=== PATIENT | female | born 1940 | race Caucasian/White ===

== ENCOUNTER 2017-04-16 22:05 | Inpatient (IN) | payer MEDICARE, OTHER ==
[~2017-04-16] VITALS: Ht 142.2 cm; Wt 51.4 kg
[~2017-04-16 22:05] MED LIST: DIVA125T3 PO; DIVA250T33 PO; LEVO75TA PO; LOSA50TA3 PO; OLAN5TAB29 PO; POLY17PO10 PO; RANI150C4 PO
[2017-04-16] MEDS ORDERED: DIVA500T28 (22:20)
[2017-04-16] MEDS ORDERED: OLAN5TAB5 PO (22:30)
[2017-04-17] MEDS ORDERED: OLAN-1 PO (01:10)
[2017-04-17] MEDS ORDERED: POLY17PO10 PO (01:16)
[2017-04-17] MEDS ORDERED: DIVA500T7 PO (01:16)
[2017-04-17] MEDS ORDERED: OLANZapine 5mg rapidly disint. tablet PO ONE (01:50)
[2017-04-17 03:44] VITALS: BP 177/86
[2017-04-17] MEDS: levoTHYROXINE 75mcg tablet PO SCH (07:40)
[2017-04-17 08:00] VITALS: BP 118/55
[2017-04-17] MEDS: divalproex sodium 250mg tablet PO SCH (08:11)
[2017-04-17] MEDS: losartan 50mg tablet PO SCH (08:11)
[2017-04-17 19:40] VITALS: BP 137/73
[2017-04-17] MEDS ORDERED: OLANZapine 5mg rapidly disint. tablet PO SCH ×2 (21:00)
[2017-04-17] MEDS: polyethylene glycol 3350 17gm powd pack PO SCH (21:00)
[2017-04-17] MEDS: temazepam 15mg capsule PO PRN (22:03)
[2017-04-17] MEDS: divalproex sodium 500mg tablet.DR PO SCH (22:05)
[2017-04-18] MEDS: levoTHYROXINE 75mcg tablet PO SCH (07:23)
[2017-04-18 08:00] VITALS: BP 132/83
[2017-04-18] MEDS: losartan 50mg tablet PO SCH (08:21)
[2017-04-18] MEDS: divalproex sodium 250mg tablet PO SCH (08:21)
[2017-04-18 09:03] VITALS: BP 132/83
[2017-04-18 19:11] VITALS: BP 121/77
[2017-04-18] MEDS: divalproex sodium 500mg tablet.DR PO SCH (20:37)
[2017-04-18] MEDS: OLANZapine 5mg rapidly disint. tablet PO SCH (20:37)
[2017-04-18] MEDS: polyethylene glycol 3350 17gm powd pack PO SCH (20:38)
[2017-04-19] MEDS: levoTHYROXINE 75mcg tablet PO SCH (07:43)
[2017-04-19 07:54] VITALS: BP 139/63
[2017-04-19] MEDS ORDERED: divalproex sodium 250mg tablet PO SCH (08:00)
[2017-04-19] MEDS ORDERED: divalproex sodium 500mg tablet.DR PO SCH (08:15)
[2017-04-19] MEDS: losartan 50mg tablet PO SCH (08:40)
[2017-04-19] MEDS: divalproex sodium 500mg tablet.DR PO SCH ×2 (08:40→20:27)
[2017-04-19 19:33] VITALS: BP 166/78
[2017-04-19] MEDS: polyethylene glycol 3350 17gm powd pack PO SCH (20:27)
[2017-04-19] MEDS: OLANZapine 5mg rapidly disint. tablet PO SCH (20:28)
[2017-04-19 20:30] VITALS: BP 140/80
[2017-04-20] MEDS: acetaminophen 325mg tablet PO PRN (03:28)
[2017-04-20 07:47] VITALS: BP 132/55
[2017-04-20] MEDS: divalproex sodium 500mg tablet.DR PO SCH ×2 (08:09→21:17)
[2017-04-20] MEDS: losartan 50mg tablet PO SCH (08:10)
[2017-04-20] MEDS: levoTHYROXINE 75mcg tablet PO SCH (08:10)
[2017-04-20 20:00] VITALS: BP 140/82
[2017-04-20] MEDS: polyethylene glycol 3350 17gm powd pack PO SCH (21:17)
[2017-04-20] MEDS: OLANZapine 5mg rapidly disint. tablet PO SCH (21:17)
[2017-04-20] MEDS: temazepam 15mg capsule PO PRN (22:19)
[2017-04-21 07:00] VITALS: BP 136/78
[2017-04-21] MEDS: levoTHYROXINE 75mcg tablet PO SCH (07:12)
[2017-04-21] MEDS: losartan 50mg tablet PO SCH (08:01)
[2017-04-21] MEDS: divalproex sodium 500mg tablet.DR PO SCH ×2 (08:01→21:06)
[2017-04-21 20:00] VITALS: BP 135/46
[2017-04-21] MEDS: polyethylene glycol 3350 17gm powd pack PO SCH (21:05)
[2017-04-21] MEDS: OLANZapine 5mg rapidly disint. tablet PO SCH (21:06)
[2017-04-21] MEDS: temazepam 15mg capsule PO PRN (21:06)
[2017-04-22 07:03] VITALS: BP 144/70
[2017-04-22] MEDS: losartan 50mg tablet PO SCH (08:32)
[2017-04-22] MEDS: levoTHYROXINE 75mcg tablet PO SCH (08:32)
[2017-04-22] MEDS: divalproex sodium 500mg tablet.DR PO SCH ×2 (08:32→20:49)
[2017-04-22 19:38] VITALS: BP 154/80
[2017-04-22] MEDS: polyethylene glycol 3350 17gm powd pack PO SCH (20:49)
[2017-04-22] MEDS: OLANZapine 5mg rapidly disint. tablet PO SCH (20:49)
[2017-04-23] MEDS: temazepam 15mg capsule PO PRN (00:29)
[2017-04-23 06:00] VITALS: BP 148/87
[2017-04-23 08:00] VITALS: BP 148/73
[2017-04-23] MEDS: levoTHYROXINE 75mcg tablet PO SCH (08:27)
[2017-04-23] MEDS: losartan 50mg tablet PO SCH (08:27)
[2017-04-23] MEDS: divalproex sodium 500mg tablet.DR PO SCH ×2 (08:27→20:59)
[2017-04-23 19:07] VITALS: BP 134/68
[2017-04-23] MEDS: polyethylene glycol 3350 17gm powd pack PO SCH (20:58)
[2017-04-23] MEDS ORDERED: QUEtiapine 25mg tablet PO SCH (21:00)
[2017-04-24] MEDS: acetaminophen 325mg tablet PO PRN ×2 (04:18→09:03)
[2017-04-24] MEDS: levoTHYROXINE 75mcg tablet PO SCH (06:50)
[2017-04-24 07:43] LABS: BASOPHILS % (AUTO) 0.7 % (0-1); EOSINOPHILS # (AUTO) 0.1 X10'3 (0-0.9); EOSINOPHILS % (AUTO) 2.3 % (0-6); HEMATOCRIT 35.2 % (35.0-45.0); HEMOGLOBIN 12.1 g/dl (12.0-16.0); LYMPHOCYTES # (AUTO) 1.2 X10'3 (1.1-4.8); MEAN CORPUSCULAR HEMOGLOBIN 31.6 PG (27.0-31.0); MEAN CORPUSCULAR HGB CONC 34.5 % (33.0-36.5); MEAN CORPUSCULAR VOLUME 91.4 FL (78-98); MONOCYTES # (AUTO) 0.5 X10'3 (0-0.9); MONOCYTES % (AUTO) 12.4 % (2-12); NEUTROPHILS % (AUTO) 52.6 % (42-75); PLATELET COUNT 225 X10'3 (140-440); RED BLOOD COUNT 3.85 X10'6 (4.20-5.60); RED CELL DISTRIBUTION WIDTH 12.6 % (11.5-14.5); WHITE BLOOD COUNT 3.9 X10'3 (4.5-11.0)
[2017-04-24 08:06] LABS: ALANINE AMINOTRANSFERASE 22 U/L (12-78); ALBUMIN 3.6 G/DL (3.4-5.0); ALBUMIN/GLOBULIN RATIO 1.1 (1.1-1.5); ALKALINE PHOSPHATASE 56 IU/L (46-116); ANION GAP 5 (8-16); ASPARTATE AMINO TRANSFERASE 11 U/L (10-37); BILIRUBIN,TOTAL 0.4 MG/DL (0.1-1.0); BLOOD UREA NITROGEN 24 MG/DL (7-18); CALCIUM 9.2 MG/DL (8.5-10.1); CHLORIDE 99 MMOL/L (99-107); GLUCOSE 104 MG/DL (70-104); POTASSIUM 4.8 MMOL/L (3.5-5.1); SODIUM 134 MMOL/L (135-145); TOTAL CARBON DIOXIDE 29.6 MMOL/L (24-32); TOTAL PROTEIN 6.8 G/DL (6.4-8.2); eGFR 44 ML/MIN
[2017-04-24] MEDS: divalproex sodium 500mg tablet.DR PO SCH ×2 (08:22→20:06)
[2017-04-24] MEDS: losartan 50mg tablet PO SCH (08:22)
[2017-04-24 08:25] LABS: VALPROATE 99 UG/ML (50-100)
[2017-04-24] MEDS ORDERED: QUEtiapine 25mg tablet PO STA (08:28)
[2017-04-24 09:00] VITALS: BP 149/91
[2017-04-24] MEDS ORDERED: LORazepam 0.5 MG tablet PO ONE (12:00)
[2017-04-24] MEDS ORDERED: QUEtiapine 25mg tablet PO ONE (12:00)
[2017-04-24 19:36] VITALS: BP 109/56
[2017-04-24] MEDS: QUEtiapine 25mg tablet PO SCH (20:05)
[2017-04-24] MEDS: polyethylene glycol 3350 17gm powd pack PO SCH ×2 (20:06→20:12)
[2017-04-25 08:00] VITALS: BP 129/53
[2017-04-25] MEDS: levoTHYROXINE 75mcg tablet PO SCH (08:16)
[2017-04-25] MEDS: losartan 50mg tablet PO SCH (08:16)
[2017-04-25] MEDS: divalproex sodium 500mg tablet.DR PO SCH ×2 (08:16→20:12)
[2017-04-25] MEDS: QUEtiapine 25mg tablet PO SCH ×2 (08:17→20:13)
[2017-04-25 19:33] VITALS: BP 154/75
[2017-04-25] MEDS: polyethylene glycol 3350 17gm powd pack PO SCH (20:19)
[2017-04-26 07:16] VITALS: BP 133/61
[2017-04-26] MEDS: levoTHYROXINE 75mcg tablet PO SCH (07:37)
[2017-04-26] MEDS: QUEtiapine 25mg tablet PO SCH ×2 (07:37→20:09)
[2017-04-26] MEDS: losartan 50mg tablet PO SCH (07:38)
[2017-04-26] MEDS: divalproex sodium 500mg tablet.DR PO SCH ×2 (07:38→20:09)
[2017-04-26 19:55] VITALS: BP 157/68
[2017-04-26] MEDS: acetaminophen 325mg tablet PO PRN (20:08)
[2017-04-26] MEDS: polyethylene glycol 3350 17gm powd pack PO SCH (20:08)
[2017-04-27] MEDS ORDERED: acetaminophen 325mg tablet PO PRN (01:20)
[2017-04-27] MEDS: LORazepam 0.5 MG tablet PO PRN ×2 (02:39→20:20)
[2017-04-27 07:09] VITALS: BP 133/65
[2017-04-27] MEDS: levoTHYROXINE 75mcg tablet PO SCH (07:18)
[2017-04-27] MEDS: divalproex sodium 500mg tablet.DR PO SCH ×2 (07:18→20:20)
[2017-04-27] MEDS: QUEtiapine 25mg tablet PO SCH ×2 (07:19→20:20)
[2017-04-27] MEDS: losartan 50mg tablet PO SCH ×2 (07:57→08:01)
[2017-04-27] MEDS: acetaminophen 325mg tablet PO PRN (14:22)
[2017-04-27 19:25] VITALS: BP 133/72
[2017-04-27] MEDS: polyethylene glycol 3350 17gm powd pack PO SCH (21:00)
[2017-04-28 07:15] VITALS: BP 137/65
[2017-04-28] MEDS: levoTHYROXINE 75mcg tablet PO SCH (07:27)
[2017-04-28] MEDS: divalproex sodium 500mg tablet.DR PO SCH ×2 (08:06→21:02)
[2017-04-28] MEDS: losartan 50mg tablet PO SCH (08:06)
[2017-04-28] MEDS: QUEtiapine 25mg tablet PO SCH (08:07)
[2017-04-28] MEDS: acetaminophen 325mg tablet PO PRN (16:56)
[2017-04-28 17:37] LABS: CLARITY,URINE Clear (Clear); GLUCOSE, URINE Negative (Neg); KETONES,URINE Negative (Neg); LEUKOCYTE ESTERASE ,URINE Negative (Neg); NITRITES, URINE Negative (Neg); OCCULT BLOOD,URINE Trace (Neg); PROTEIN,URINE Negative (Neg); UROBILINOGEN,URINE 0.2 E.U/dL (0.2-1.0)
[2017-04-28 17:38] LABS: COLOR,URINE STRAW (Yellow); UA COLLECTION TYPE STRAIGHT CATH
[2017-04-28 17:49] LABS: BACTERIA,URINE NONE SEEN /HPF (Neg); MUCUS STRANDS NONE SEEN /LPF (Neg); RBC,URINE 0-2 /HPF (0-2); SQUAMOUS EPITHELIAL CELL,UR NONE SEEN /LPF (FEW); WBC,URINE NONE SEEN /HPF (0-4)
[2017-04-28] MEDS: phenazopyridine 100mg tablet PO SCH (17:51)
[2017-04-28 19:00] VITALS: BP 143/55
[2017-04-28] MEDS ORDERED: QUEtiapine 25mg tablet PO SCH (21:00)
[2017-04-28] MEDS: polyethylene glycol 3350 17gm powd pack PO SCH (21:00)
[2017-04-29] MEDS: acetaminophen 325mg tablet PO PRN ×2 (07:25→18:48)
[2017-04-29] MEDS: levoTHYROXINE 75mcg tablet PO SCH (07:26)
[2017-04-29 08:00] VITALS: BP 152/72
[2017-04-29] MEDS: phenazopyridine 100mg tablet PO SCH ×3 (08:00→18:00)
[2017-04-29] MEDS: losartan 50mg tablet PO SCH (08:25)
[2017-04-29] MEDS: divalproex sodium 500mg tablet.DR PO SCH ×2 (08:25→20:57)
[2017-04-29] MEDS: QUEtiapine 25mg tablet PO SCH (08:25)
[2017-04-29] MEDS ORDERED: quetiapine 100mg tablet PO ONE (08:55)
[2017-04-29] MEDS: LORazepam 0.5 MG tablet PO PRN (11:02)
[2017-04-29] MEDS: LORazepam 0.5 MG tablet PO SCH ×3 (11:30→20:57)
[2017-04-29] MEDS: OLANZapine 2.5MG tablet PO SCH (12:58)
[2017-04-29 19:17] VITALS: BP 164/62
[2017-04-29] MEDS: olanzapine 10mg tablet PO SCH (20:57)
[2017-04-29] MEDS: polyethylene glycol 3350 17gm powd pack PO SCH (21:00)
[2017-04-30] MEDS: OLANZapine 2.5MG tablet PO SCH ×2 (06:53→13:28)
[2017-04-30] MEDS: levoTHYROXINE 75mcg tablet PO SCH (06:53)
[2017-04-30 08:00] VITALS: BP 157/81
[2017-04-30] MEDS: divalproex sodium 500mg tablet.DR PO SCH ×2 (08:17→19:23)
[2017-04-30] MEDS: losartan 50mg tablet PO SCH (08:17)
[2017-04-30] MEDS: LORazepam 0.5 MG tablet PO SCH ×2 (08:17→13:28)
[2017-04-30] MEDS: phenazopyridine 100mg tablet PO SCH ×3 (08:17→19:25)
[2017-04-30] MEDS: acetaminophen 325mg tablet PO PRN (14:56)
[2017-04-30] MEDS ORDERED: LORazepam 0.5 MG tablet PO PRN (17:55)
[2017-04-30] MEDS: olanzapine 10mg tablet PO SCH (19:25)
[2017-04-30] MEDS: polyethylene glycol 3350 17gm powd pack PO SCH (19:30)
[2017-04-30 19:43] VITALS: BP 132/51
[2017-05-01] MEDS: levoTHYROXINE 75mcg tablet PO SCH (07:31)
[2017-05-01 08:00] VITALS: BP 144/73
[2017-05-01] MEDS: phenazopyridine 100mg tablet PO SCH ×2 (08:09→12:57)
[2017-05-01] MEDS: losartan 50mg tablet PO SCH (08:09)
[2017-05-01] MEDS: divalproex sodium 500mg tablet.DR PO SCH ×2 (08:09→20:42)
[2017-05-01] MEDS: acetaminophen 325mg tablet PO PRN (12:56)
[2017-05-01 19:22] LABS: BASOPHILS % (AUTO) 0.3 % (0-1); EOSINOPHILS # (AUTO) 0.1 X10'3 (0-0.9); EOSINOPHILS % (AUTO) 1.3 % (0-6); HEMATOCRIT 35.5 % (35.0-45.0); HEMOGLOBIN 12.3 g/dl (12.0-16.0); LYMPHOCYTES # (AUTO) 1.7 X10'3 (1.1-4.8); MEAN CORPUSCULAR HGB CONC 34.7 % (33.0-36.5); MEAN CORPUSCULAR VOLUME 92.2 FL (78-98); MEAN PLATELET VOLUME 7.3 FL (7.4-10.4); MONOCYTES # (AUTO) 0.6 X10'3 (0-0.9); MONOCYTES % (AUTO) 10.4 % (2-12); NEUTROPHILS # (AUTO) 3.1 X10'3 (1.8-7.7); PLATELET COUNT 232 X10'3 (140-440); RED BLOOD COUNT 3.85 X10'6 (4.20-5.60); WHITE BLOOD COUNT 5.5 X10'3 (4.5-11.0)
[2017-05-01 19:31] LABS: BLOOD UREA NITROGEN 27 MG/DL (7-18); CREATININE 1.31 MG/DL (0.40-0.90); eGFR 39 ML/MIN
[2017-05-01 20:13] VITALS: BP 151/60
[2017-05-01] MEDS: olanzapine 10mg tablet PO SCH (20:42)
[2017-05-01] MEDS: polyethylene glycol 3350 17gm powd pack PO SCH (20:48)
[2017-05-02] MEDS: levoTHYROXINE 75mcg tablet PO SCH (07:28)
[2017-05-02 07:42] VITALS: BP 155/83
[2017-05-02] MEDS: losartan 50mg tablet PO SCH (08:18)
[2017-05-02] MEDS: divalproex sodium 500mg tablet.DR PO SCH (08:18)
[2017-05-02] MEDS: acetaminophen 325mg tablet PO PRN ×2 (10:57→20:19)
[2017-05-02] MEDS ORDERED: OLANZapine 5mg rapidly disint. tablet PO PRN (17:00)
[2017-05-02 19:55] VITALS: BP 147/93
[2017-05-02] MEDS: olanzapine 10mg tablet PO SCH (20:19)
[2017-05-02] MEDS: polyethylene glycol 3350 17gm powd pack PO SCH (21:00)
[2017-05-02] MEDS ORDERED: divalproex sodium 500mg tablet.DR PO SCH (21:00)
[2017-05-03] MEDS: acetaminophen 325mg tablet PO PRN ×2 (05:14→11:54)
[2017-05-03 07:08] VITALS: BP 136/73
[2017-05-03] MEDS: levoTHYROXINE 75mcg tablet PO SCH (07:38)
[2017-05-03] MEDS: divalproex sod 125mg tablet.DR PO SCH (09:03)
[2017-05-03] MEDS: losartan 50mg tablet PO SCH (09:03)
[2017-05-03 09:36] LABS: BASOPHILS % (AUTO) 0.9 % (0-1); EOSINOPHILS % (AUTO) 1.2 % (0-6); HEMATOCRIT 34.6 % (35.0-45.0); HEMOGLOBIN 12.4 g/dl (12.0-16.0); LYMPHOCYTES # (AUTO) 0.9 X10'3 (1.1-4.8); LYMPHOCYTES % (AUTO) 22.9 % (21-51); MEAN CORPUSCULAR HEMOGLOBIN 32.4 PG (27.0-31.0); MEAN CORPUSCULAR HGB CONC 35.8 % (33.0-36.5); MEAN CORPUSCULAR VOLUME 90.4 FL (78-98); MEAN PLATELET VOLUME 6.3 FL (7.4-10.4); MONOCYTES # (AUTO) 0.5 X10'3 (0-0.9); MONOCYTES % (AUTO) 13.2 % (2-12); NEUTROPHILS # (AUTO) 2.4 X10'3 (1.8-7.7); NEUTROPHILS % (AUTO) 61.8 % (42-75); PLATELET COUNT 248 X10'3 (140-440); RED BLOOD COUNT 3.82 X10'6 (4.20-5.60); RED CELL DISTRIBUTION WIDTH 12.2 % (11.5-14.5); WHITE BLOOD COUNT 3.9 X10'3 (4.5-11.0)
[2017-05-03 09:50] LABS: ALANINE AMINOTRANSFERASE 16 U/L (12-78); ALBUMIN 3.9 G/DL (3.4-5.0); ALBUMIN/GLOBULIN RATIO 1.1 (1.1-1.5); ALKALINE PHOSPHATASE 67 IU/L (46-116); ANION GAP 9 (8-16); ASPARTATE AMINO TRANSFERASE 14 U/L (10-37); BILIRUBIN,TOTAL 0.4 MG/DL (0.1-1.0); BLOOD UREA NITROGEN 24 MG/DL (7-18); BUN/CREATININE RATIO 25.5 (6.6-38.0); CALCIUM 9.4 MG/DL (8.5-10.1); CHLORIDE 96 MMOL/L (99-107); CREATININE 0.94 MG/DL (0.40-0.90); GLUCOSE 102 MG/DL (70-104); POTASSIUM 4.4 MMOL/L (3.5-5.1); SODIUM 133 MMOL/L (135-145); TOTAL CARBON DIOXIDE 27.7 MMOL/L (24-32); TOTAL PROTEIN 7.5 G/DL (6.4-8.2); eGFR 58 ML/MIN
[2017-05-03 10:11] LABS: CLARITY,URINE Clear (Clear); COLOR,URINE Yellow (Yellow); GLUCOSE, URINE Negative (Neg); KETONES,URINE Negative (Neg); LEUKOCYTE ESTERASE ,URINE Negative (Neg); NITRITES, URINE Negative (Neg); OCCULT BLOOD,URINE Negative (Neg); PH,URINE 7.5 (4.8-8.0); PROTEIN,URINE Negative (Neg); UROBILINOGEN,URINE 0.2 E.U/dL (0.2-1.0)
[2017-05-03 10:15] LABS: UA COLLECTION TYPE STRAIGHT CATH
[2017-05-03] MEDS ORDERED: OLANZapine 2.5MG tablet PO ONE ×2 (12:45→20:50)
[2017-05-03] MEDS: traZODone 50mg tablet PO SCH (20:20)
[2017-05-03] MEDS: olanzapine 10mg tablet PO SCH (21:00)
[2017-05-03] MEDS: polyethylene glycol 3350 17gm powd pack PO SCH (21:00)
[2017-05-03] MEDS: divalproex sodium 250mg tablet PO SCH (21:00)
[2017-05-03] MEDS ORDERED: OLANZapine 5mg rapidly disint. tablet PO ONE (21:30)
[2017-05-04 08:00] VITALS: BP 129/76
[2017-05-04] MEDS: OLANZapine 2.5MG tablet PO SCH ×2 (08:43→13:06)
[2017-05-04] MEDS: levoTHYROXINE 75mcg tablet PO SCH (08:43)
[2017-05-04] MEDS: divalproex sod 125mg tablet.DR PO SCH (08:43)
[2017-05-04] MEDS: losartan 50mg tablet PO SCH (08:43)
[2017-05-04 19:00] VITALS: BP 167/77
[2017-05-04] MEDS ORDERED: OLANZapine 2.5MG tablet PO ONE (19:40)
[2017-05-04] MEDS ORDERED: OLANZapine **IM** 10 mg inj. IM ONE (19:45)
[2017-05-04] MEDS: acetaminophen 325mg tablet PO PRN (20:08)
[2017-05-04] MEDS: traZODone 50mg tablet PO SCH (20:10)
[2017-05-04] MEDS: polyethylene glycol 3350 17gm powd pack PO SCH (20:20)
[2017-05-04] MEDS: divalproex sodium 250mg tablet PO SCH (21:00)
[2017-05-04] MEDS ORDERED: OLANZapine 2.5MG tablet PO SCH (21:00)
[2017-05-04] MEDS ORDERED: ketorolac tromethamine 15mg/ml inj. IM ONE (21:40)
[2017-05-04] MEDS ORDERED: ketorolac trometh. 30mg/ml inj. IM ONE (21:55)
[2017-05-05] MEDS ORDERED: benztropine 1 mg/ml 2ml ampule IM ONE ×2 (00:25→00:35)
[2017-05-05] MEDS ORDERED: haloperidol lactate 5mg/ml inj IM ONE ×2 (00:25→00:35)
[2017-05-05] MEDS ORDERED: LORazepam 2 mg/ml vial IM ONE ×2 (00:25→00:35)
[2017-05-05] MEDS ORDERED: magnesium hydroxide 30ml (MOM) UD suspension PO ONE (07:10)
[2017-05-05 07:40] VITALS: BP 114/62
[2017-05-05] MEDS: levoTHYROXINE 75mcg tablet PO SCH (07:43)
[2017-05-05] MEDS: losartan 50mg tablet PO SCH (07:55)
[2017-05-05] MEDS ORDERED: divalproex sod 125mg tablet.DR PO SCH (08:00)
[2017-05-05] MEDS ORDERED: docusate sod 250mg capsule PO SCH (08:00)
[2017-05-05] MEDS ORDERED: clonazePAM 0.5mg tablet PO SCH (08:00)
[2017-05-05 12:14] VITALS: BP 116/63
[2017-05-05 12:28] LABS: ALANINE AMINOTRANSFERASE 24 U/L (12-78); ALBUMIN 3.8 G/DL (3.4-5.0); ALBUMIN/GLOBULIN RATIO 1.2 (1.1-1.5); ALKALINE PHOSPHATASE 66 IU/L (46-116); ANION GAP 9 (8-16); ASPARTATE AMINO TRANSFERASE 24 U/L (10-37); BILIRUBIN,TOTAL 0.4 MG/DL (0.1-1.0); BLOOD UREA NITROGEN 36 MG/DL (7-18); BUN/CREATININE RATIO 20.6 (6.6-38.0); CALCIUM 9.5 MG/DL (8.5-10.1); CHLORIDE 92 MMOL/L (99-107); CREATININE 1.75 MG/DL (0.40-0.90); GLUCOSE 90 MG/DL (70-104); POTASSIUM 4.9 MMOL/L (3.5-5.1); SODIUM 129 MMOL/L (135-145); TOTAL CARBON DIOXIDE 28.4 MMOL/L (24-32); eGFR 28 ML/MIN
== END 2017-05-05 12:30 | disposition short-term general hospital (02) | DRG 885 ==
LOC: ADULT MH 22:05
PROVIDERS: ADMIT Psychiatry & Neurology Psychiatry; ATTEND Psychiatry & Neurology Psychiatry
DX: F25.0 Schizoaffective disorder, bipolar type (principal); I62.01 Nontraumatic acute subdural hemorrhage; F29 Unspecified psychosis not due to a substance or known physiological condition; F39 Unspecified mood [affective] disorder; W18.39XA Other fall on same level, initial encounter; I44.7 Left bundle-branch block, unspecified; E03.9 Hypothyroidism, unspecified; I12.9 Hypertensive chronic kidney disease with stage 1 through stage 4 chronic kidney disease, or unspecified chronic kidney disease; K21.9 Gastro-esophageal reflux disease without esophagitis; N18.9 Chronic kidney disease, unspecified; R01.1 Cardiac murmur, unspecified; F32.9 Major depressive disorder, single episode, unspecified; K40.90 Unilateral inguinal hernia, without obstruction or gangrene, not specified as recurrent; Z53.20 Procedure and treatment not carried out because of patient's decision for unspecified reasons; Z96.652 Presence of left artificial knee joint; Z90.710 Acquired absence of both cervix and uterus; Z88.2 Allergy status to sulfonamides; Z88.6 Allergy status to analgesic agent; Z88.8 Allergy status to other drugs, medicaments and biological substances; Z79.899 Other long term (current) drug therapy; Z87.891 Personal history of nicotine dependence; Y93.89 Activity, other specified; Y92.091 Bathroom in other non-institutional residence as the place of occurrence of the external cause; Y99.8 Other external cause status
CPT/HCPCS: 36415; 70450; 74176; 80053; 80164; 81001; 81003; 82565; 83036; 83605; 83690; 84439; 84443; 84480; 84520; 85025; 87070; J0515; J1630; J1885; J2060; J3490

== ENCOUNTER 2018-10-22 06:17 | Day surgery (SDC) | payer MEDICARE, OTHER ==
[2018-10-17 12:42] LABS: BASOPHILS % (AUTO) 0.6 % (0-1); EOSINOPHILS % (AUTO) 0.7 % (0-6); LYMPHOCYTES # (AUTO) 1.3 X10'3 (1.1-4.8); LYMPHOCYTES % (AUTO) 28.5 % (21-51); MEAN CORPUSCULAR HEMOGLOBIN 31.7 PG (27.0-31.0); MEAN CORPUSCULAR VOLUME 93.4 FL (78-98); MEAN PLATELET VOLUME 6.8 FL (7.4-10.4); MONOCYTES # (AUTO) 0.6 X10'3 (0-0.9); MONOCYTES % (AUTO) 12.6 % (2-12); NEUTROPHILS # (AUTO) 2.7 X10'3 (1.8-7.7); NEUTROPHILS % (AUTO) 57.6 % (42-75); PRE OP HEMATOCRIT 37.1 % (35.0-45.0); PRE OP HEMOGLOBIN 12.6 g/dL (12.0-16.0); PRE OP PLATELET COUNT 221 X10'3 (140-440); RED BLOOD COUNT 3.98 X10'6 (4.20-5.60); RED CELL DISTRIBUTION WIDTH 12.7 % (11.5-14.5)
[2018-10-17 12:44] LABS: CLARITY,URINE CLOUDY (Clear); COLOR,URINE YELLOW (Yellow); GLUCOSE, URINE NEGATIVE (Neg); KETONES,URINE NEGATIVE (Neg); LEUKOCYTE ESTERASE ,URINE MODERATE (Neg); NITRITES, URINE NEGATIVE (Neg); OCCULT BLOOD,URINE TRACE-INTACT (Neg); PH,URINE 6.5 (4.8-8.0); PROTEIN,URINE NEGATIVE (Neg); UROBILINOGEN,URINE 0.2 E.U/dL (0.2-1.0)
[2018-10-17 12:45] LABS: UA COLLECTION TYPE CLN CATCH MIDSTREAM
[2018-10-17 13:06] LABS: MUCUS STRANDS FEW /LPF (Neg); RENAL CELLS, URINE FEW /HPF; SQUAMOUS EPITHELIAL CELL,UR FEW /LPF (FEW); TRANSITIONAL EPI CELLS,URINE FEW /HPF
[2018-10-17 13:07] LABS: ALBUMIN 4.1 G/DL (3.4-5.0); ALBUMIN/GLOBULIN RATIO 1.1 (1.1-1.5); ALKALINE PHOSPHATASE 56 IU/L (46-116); BLOOD UREA NITROGEN 23 MG/DL (7-18); BUN/CREATININE RATIO 21.1 (6.6-38.0); CALCIUM 9.4 MG/DL (8.5-10.1); CHLORIDE 105 MMOL/L (99-107); CREATININE 1.09 MG/DL (0.40-0.90); PRE OP ALT 21 U/L (30-65); PRE OP ANION GAP 7 (8-16); PRE OP AST 16 U/L (10-37); PRE OP BILIRUB, TOTAL 0.3 MG/DL (0.0-1.0); PRE OP GLUCOSE 71 MG/DL (70-104); PRE OP POTASSIUM 4.3 MMOL/L (3.4-5.1); PRE OP SODIUM 139 MMOL/L (135-145); TOTAL CARBON DIOXIDE 27.1 MMOL/L (24-32); TOTAL PROTEIN 7.8 G/DL (6.4-8.2); eGFR 49 ML/MIN
[2018-10-17 13:07] LABS: BACTERIA,URINE 1+ /HPF (Neg); RBC,URINE 0-2 /HPF (0-2); WBC,URINE 0-4 /HPF (0-4)
[2018-10-22] VITALS (14 sets, daily range): BP systolic 132–158; BP diastolic 50–88
[~2018-10-22] VITALS: Ht 147.3 cm; Wt 52.0 kg
[~2018-10-22 06:17] MED LIST changes: +ALEN70TA13 PO; +BENZ0.5T4 PO; -DIVA125T3 PO; +DIVA500T39 PO; +DOCU-148 PO; +HALO5TAB PO; +LAMO25TA5 PO; -LEVO75TA PO; +LEVO88TA7 PO; -LOSA50TA3 PO; -OLAN5TAB29 PO; +OLAN5TAB5 PO; +OSC500T PO; -POLY17PO10 PO; +cefazolin/dext.iso 2gm/100 ML IV ONE; +famotidine 20mg tablet PO ONE
[2018-10-22] MEDS ORDERED: ceFAZolin 1000mg inj ONE (07:06)
[2018-10-22] MEDS ORDERED: BUPIVAcaine/PF 2.5 mg/ml (0.25%) 30ml vial ONE (07:06)
[2018-10-22] MEDS ORDERED: ringers solution, lacted 1,000 ML IV SCH ×2 (08:00→09:20)
[2018-10-22] MEDS ORDERED: ondansetron/PF 4mg/2ml inj ONE (08:34)
[2018-10-22] MEDS ORDERED: sevoflurane 250ml liquid IH ONE (08:34)
[2018-10-22] MEDS ORDERED: fentaNYL/PF 50MCG/1 ML 2ML syringe ONE ×2 (08:34→08:36)
[2018-10-22] MEDS ORDERED: dexamethasone sod phosphate 4mg/ml inj. ONE (08:36)
[2018-10-22] MEDS ORDERED: propofol inj 20 ML IV ONE (08:36)
[2018-10-22] MEDS ORDERED: BUPIVACAINE liposomal/PF 13.3 MG/ML vial IM ONE (09:01)
[2018-10-22] MEDS ORDERED: meperidine/PF 25mg/ml syringe IV PRN ×3 (09:20)
[2018-10-22] MEDS ORDERED: ketorolac tromethamine 15mg/ml inj. IV ONE (09:20)
[2018-10-22] MEDS ORDERED: ondansetron/PF 4mg/2ml inj IV PRN (09:20)
[2018-10-22] MEDS ORDERED: morphine 4 MG/ML inj SYRINge IV PRN ×2 (09:20)
--- NOTE | 2018-10-22 09:32 | NUR ---
Received from OR via [facility], accompanied by Anesthesiologist DR NOVA and report given by Anesthesiologist. PT DROWSY, RESTLESS,DENIES PAIN, LEFT LOWER ABDOMEN W/FOAM TAPE COVERING CDI. Addendum: 10/22/18 at 1001 by Brooklynn Hernandez RN Amended: Links added.
--- NOTE | 2018-10-22 11:42 | NUR ---
D/C INSTRUCTIONS GIVEN AND GONE OVER W/PT AND PTS DAUGHTER, BOTH VERBALIZED UNDERSTANDING, PT D'CD TO HOME VIA W/C TO PRIVATE VEHICLE W/O INCIDENT. Addendum: 10/22/18 at 1217 by Brooklynn Hernandez RN Amended: Links added.
== END 2018-10-22 11:42 | disposition home or self-care (01) ==
LOC: PAS 06:17
PROVIDERS: ATTEND Surgery
DX: K40.90 Unilateral inguinal hernia, without obstruction or gangrene, not specified as recurrent (principal); K21.9 Gastro-esophageal reflux disease without esophagitis; M19.90 Unspecified osteoarthritis, unspecified site; Z90.710 Acquired absence of both cervix and uterus; Z96.652 Presence of left artificial knee joint; Z87.891 Personal history of nicotine dependence; Z88.2 Allergy status to sulfonamides; Z88.8 Allergy status to other drugs, medicaments and biological substances; Z79.899 Other long term (current) drug therapy; Z98.890 Other specified postprocedural states
CPT/HCPCS: 36415; 49505; 80053; 81001; 82948; 84443; 85025; 87088; C1781; C9290; J0690; J1100; J1885; J2704; J3010; J3490; A4215; A4618; A6449; A7000; J2405; J7120

== ENCOUNTER 2021-03-10 21:08 | Emergency (ER) | payer MEDICARE, OTHER ==
[~2021-03-10] VITALS: Ht 147.3 cm; Wt 50.0 kg
[~2021-03-10 21:08] MED LIST changes: -ALEN70TA13 PO; +ALEN70TA80 PO; +LIDOcaine 1% W/epiNEPHrine 1:100,000 20ml vial ONE; -cefazolin/dext.iso 2gm/100 ML IV ONE; -famotidine 20mg tablet PO ONE
[2021-03-10] MEDS ORDERED: LIDOcaine 1% W/epiNEPHrine 1:200,000 10ml vial IJ ONE (22:00)
[2021-03-10] MEDS ORDERED: TETanus/Pertussis (Acell)/Diphther VAC/PF (Tdap-Adult) 0.5ml syringe IMVAC ONE (22:00)
[2021-03-10] MEDS ORDERED: LIDOcaine 1% W/epiNEPHrine 1:100,000 20ml vial IJ ONE (22:15)
--- NOTE | 2021-03-10 22:34 | NUR ---
CLEANED PATIENT'S HEAD IN PREP FOR PA LAC REPAIR
[2021-03-10] MEDS ORDERED: CEPH-585 PO (23:55)
[2021-03-11 00:41] VITALS: BP 146/62
== END 2021-03-11 00:56 | disposition home or self-care (01) ==
LOC: ER 21:08
DX: S01.01XA Laceration without foreign body of scalp, initial encounter (principal); K21.9 Gastro-esophageal reflux disease without esophagitis; E03.9 Hypothyroidism, unspecified; F31.9 Bipolar disorder, unspecified; Z86.69 Personal history of other diseases of the nervous system and sense organs; Z98.890 Other specified postprocedural states; Z60.2 Problems related to living alone; Z88.1 Allergy status to other antibiotic agents; Z88.5 Allergy status to narcotic agent; Z88.8 Allergy status to other drugs, medicaments and biological substances; Z79.2 Long term (current) use of antibiotics; Z20.3 Contact with and (suspected) exposure to rabies; Z79.899 Other long term (current) drug therapy; W19.XXXA Unspecified fall, initial encounter; Y93.89 Activity, other specified; Y92.89 Other specified places as the place of occurrence of the external cause; Y99.8 Other external cause status
CPT/HCPCS: 12002; 70450; 70486; 72125; 90471; 90715; 99285; J3490

== ENCOUNTER 2021-03-24 15:34 | Emergency (ER) | payer MEDICARE, OTHER ==
[~2021-03-24] VITALS: Ht 142.2 cm; Wt 52.7 kg
[~2021-03-24 15:34] MED LIST changes: -LIDOcaine 1% W/epiNEPHrine 1:100,000 20ml vial ONE
[2021-03-24 15:44] VITALS: BP 177/82
[2021-03-24 17:00] LABS: BASOPHILS % (AUTO) 0.6 % (0-1); EOSINOPHILS % (AUTO) 0.6 % (0-6); HEMATOCRIT 34.1 % (35.0-45.0); HEMOGLOBIN 11.5 g/dl (12.0-16.0); LYMPHOCYTES # (AUTO) 1.2 X10'3 (1.1-4.8); MEAN CORPUSCULAR HEMOGLOBIN 30.7 PG (27.0-31.0); MEAN CORPUSCULAR HGB CONC 33.8 g/dL (33.0-36.5); MEAN CORPUSCULAR VOLUME 90.8 FL (78-98); MEAN PLATELET VOLUME 6.8 FL (7.4-10.4); MONOCYTES # (AUTO) 0.7 X10'3 (0-0.9); MONOCYTES % (AUTO) 12.1 % (2-12); NEUTROPHILS # (AUTO) 3.6 X10'3 (1.8-7.7); NEUTROPHILS % (AUTO) 65.7 % (42-75); PLATELET COUNT 286 X10'3 (140-440); RED BLOOD COUNT 3.76 X10'6 (4.20-5.60); WHITE BLOOD COUNT 5.5 X10'3 (4.5-11.0)
[2021-03-24 17:15] LABS: ALANINE AMINOTRANSFERASE 22 U/L (12-78); ALBUMIN 3.9 G/DL (3.4-5.0); ALBUMIN/GLOBULIN RATIO 1.1 (1.1-1.5); ALKALINE PHOSPHATASE 60 IU/L (46-116); ANION GAP 12 (8-16); ASPARTATE AMINO TRANSFERASE 16 U/L (10-37); BILIRUBIN,TOTAL 0.3 MG/DL (0.1-1.0); BLOOD UREA NITROGEN 31 MG/DL (7-18); CALCIUM 9.5 MG/DL (8.5-10.1); CHLORIDE 100 MMOL/L (99-107); CREATININE 1.15 MG/DL (0.40-0.90); GLUCOSE 100 MG/DL (70-104); POTASSIUM 4.1 MMOL/L (3.5-5.1); SODIUM 138 MMOL/L (135-145); TOTAL CARBON DIOXIDE 25.9 MMOL/L (24-32); TOTAL PROTEIN 7.5 G/DL (6.4-8.2); eGFR 45 ML/MIN
[2021-03-24 17:23] LABS: VALPROATE 74.5 UG/ML (50-100)
--- NOTE | 2021-03-24 18:38 | NUR ---
pt was discharged from the lobby by provider before nursing assessments done
== END 2021-03-24 18:37 | disposition home or self-care (01) ==
LOC: ER 15:35
DX: S06.5X9A Traumatic subdural hemorrhage with loss of consciousness of unspecified duration, initial encounter (principal); K21.9 Gastro-esophageal reflux disease without esophagitis; E03.9 Hypothyroidism, unspecified; F31.9 Bipolar disorder, unspecified; Z86.69 Personal history of other diseases of the nervous system and sense organs; Z98.890 Other specified postprocedural states; Z60.2 Problems related to living alone; Z88.1 Allergy status to other antibiotic agents; Z88.8 Allergy status to other drugs, medicaments and biological substances; Z88.5 Allergy status to narcotic agent; Z79.899 Other long term (current) drug therapy; W19.XXXA Unspecified fall, initial encounter; Y93.89 Activity, other specified; Y92.89 Other specified places as the place of occurrence of the external cause; Y99.8 Other external cause status
CPT/HCPCS: 36415; 70450; 71045; 80053; 80164; 85025; 99285

== ENCOUNTER 2021-08-31 12:52 | Emergency (ER) | payer MEDICARE, OTHER ==
[~2021-08-31] VITALS: Ht 144.8 cm; Wt 51.8 kg
[2021-08-31 15:19] LABS: BASOPHILS % (AUTO) 0.5 % (0-1); EOSINOPHILS % (AUTO) 0.9 % (0-6); HEMATOCRIT 36.2 % (35.0-45.0); LYMPHOCYTES # (AUTO) 1.4 X10'3 (1.1-4.8); LYMPHOCYTES % (AUTO) 29.8 % (21-51); MEAN CORPUSCULAR HEMOGLOBIN 30.1 PG (27.0-31.0); MEAN CORPUSCULAR HGB CONC 33.3 g/dL (33.0-36.5); MEAN CORPUSCULAR VOLUME 90.3 FL (78-98); MEAN PLATELET VOLUME 6.7 FL (7.4-10.4); MONOCYTES # (AUTO) 0.7 X10'3 (0-0.9); MONOCYTES % (AUTO) 14.6 % (2-12); NEUTROPHILS # (AUTO) 2.6 X10'3 (1.8-7.7); NEUTROPHILS % (AUTO) 54.2 % (42-75); PLATELET COUNT 214 X10'3 (140-440); RED BLOOD COUNT 4.01 X10'6 (4.20-5.60); RED CELL DISTRIBUTION WIDTH 13.7 % (11.5-14.5); WHITE BLOOD COUNT 4.7 X10'3 (4.5-11.0)
--- NOTE | 2021-08-31 15:21 | NUR ---
audiometric technician at bedside.
[2021-08-31 15:39] LABS: ALANINE AMINOTRANSFERASE 20 U/L (12-78); ALBUMIN 3.7 G/DL (3.4-5.0); ALBUMIN/GLOBULIN RATIO 1.1 (1.1-1.5); ALKALINE PHOSPHATASE 59 IU/L (46-116); ANION GAP 9 (8-16); ASPARTATE AMINO TRANSFERASE 15 U/L (10-37); BILIRUBIN,TOTAL 0.3 MG/DL (0.1-1.0); BLOOD UREA NITROGEN 27 MG/DL (7-18); BUN/CREATININE RATIO 22.7 (6.6-38.0); CHLORIDE 100 MMOL/L (99-107); CREATININE 1.19 MG/DL (0.40-0.90); GLUCOSE 133 MG/DL (70-104); POTASSIUM 4.5 MMOL/L (3.5-5.1); SODIUM 135 MMOL/L (135-145); TOTAL CARBON DIOXIDE 25.7 MMOL/L (24-32); TOTAL PROTEIN 7.1 G/DL (6.4-8.2); eGFR 44 ML/MIN
[2021-08-31] MEDS ORDERED: CEPH250T PO (15:54)
[2021-08-31 16:10] VITALS: BP 176/81
== END 2021-08-31 16:13 | disposition home or self-care (01) ==
LOC: ER 12:52
DX: L03.113 Cellulitis of right upper limb (principal); K21.9 Gastro-esophageal reflux disease without esophagitis; E03.9 Hypothyroidism, unspecified; Z88.1 Allergy status to other antibiotic agents; Z88.5 Allergy status to narcotic agent; Z79.899 Other long term (current) drug therapy
CPT/HCPCS: 36415; 80053; 85025; 93971; 99284

== ENCOUNTER 2023-03-14 12:16 | Emergency (ER) | payer MEDICARE, MEDICAID ==
[~2023-03-14] VITALS: Ht 167.6 cm; Wt 52.3 kg
[~2023-03-14 12:16] MED LIST changes: -BENZ0.5T4 PO; +BENZ0.5T44 PO
[2023-03-14 13:24] LABS: BASOPHILS % (AUTO) 0.5 % (0-1); EOSINOPHILS # (AUTO) 0.1 X10'3 (0-0.9); EOSINOPHILS % (AUTO) 2.3 % (0-6); HEMATOCRIT 31.5 % (35.0-45.0); HEMOGLOBIN 10.8 g/dl (12.0-16.0); LYMPHOCYTES % (AUTO) 19.7 % (21-51); MEAN CORPUSCULAR HEMOGLOBIN 31.3 PG (27.0-31.0); MEAN CORPUSCULAR HGB CONC 34.3 g/dL (33.0-36.5); MEAN CORPUSCULAR VOLUME 91.2 FL (78-98); MEAN PLATELET VOLUME 6.9 FL (7.4-10.4); MONOCYTES # (AUTO) 0.5 X10'3 (0-0.9); MONOCYTES % (AUTO) 10.6 % (2-12); NEUTROPHILS # (AUTO) 3.4 X10'3 (1.8-7.7); NEUTROPHILS % (AUTO) 66.9 % (42-75); PLATELET COUNT 200 X10'3 (140-440); RED BLOOD COUNT 3.46 X10'6 (4.20-5.60); WHITE BLOOD COUNT 5.1 X10'3 (4.5-11.0)
[2023-03-14 13:29] LABS: ALANINE AMINOTRANSFERASE 22 U/L (12-78); ALBUMIN 3.1 G/DL (3.4-5.0); ALBUMIN/GLOBULIN RATIO 0.8 (1.1-1.5); ALKALINE PHOSPHATASE 89 IU/L (46-116); ANION GAP 4 (8-16); ASPARTATE AMINO TRANSFERASE 24 U/L (10-37); BILIRUBIN,TOTAL 0.3 MG/DL (0.1-1.0); BLOOD UREA NITROGEN 20 MG/DL (7-18); BUN/CREATININE RATIO 17.9 (10.0-20.0); CALCIUM 9.4 MG/DL (8.5-10.1); CHLORIDE 94 MMOL/L (99-107); CREATININE 1.12 MG/DL (0.40-0.90); GLUCOSE 199 MG/DL (70-104); SODIUM 127 MMOL/L (135-145); TOTAL CARBON DIOXIDE 28.6 MMOL/L (24-32); eCRCL 22 ML/MIN; eGFR 47 ML/MIN
[2023-03-14 13:31] LABS: ETHANOL < 10 MG/DL (<10)
[2023-03-14 19:33] LABS: BILIRUBIN,URINE NEGATIVE (Neg); CLARITY,URINE SLIGHTLY CLOUDY (Clear); COLOR,URINE YELLOW (Yellow); GLUCOSE, URINE NEGATIVE (Neg); KETONES,URINE NEGATIVE (Neg); LEUKOCYTE ESTERASE ,URINE LARGE (Neg); NITRITES, URINE NEGATIVE (Neg); OCCULT BLOOD,URINE TRACE-INTACT (Neg); PROTEIN,URINE NEGATIVE (Neg); UROBILINOGEN,URINE 0.2 E.U/dL (0.2-1.0)
[2023-03-14 19:35] LABS: UA COLLECTION TYPE STRAIGHT CATH
[2023-03-14 19:48] LABS: URINE AMPHETAMINE SCREEN NEGATIVE (Neg); URINE BARBITUATE SCREEN NEGATIVE (Neg); URINE BENZODIAZEPINES SCREEN NEGATIVE (Neg); URINE CANNABINOID SCREEN NEGATIVE (Neg); URINE COCAINE SCREEN NEGATIVE (Neg); URINE METHADONE SCREEN NEGATIVE (Neg); URINE OPIATE SCREEN NEGATIVE (Neg); URINE PHENCYCLIDINE SCREEN NEGATIVE (Neg)
[2023-03-14 19:58] LABS: MUCUS STRANDS NONE SEEN /LPF (Neg); SQUAMOUS EPITHELIAL CELL,UR MODERATE /LPF (FEW); TRANSITIONAL EPI CELLS,URINE MANY /HPF; WBC,URINE 20-30 /HPF (0-4)
[2023-03-14 19:59] LABS: WBC CLUMPS,URINE FEW /HPF (NEGATIVE)
[2023-03-14 20:03] LABS: BACTERIA,URINE 3+ /HPF (Neg)
[2023-03-14] MEDS ORDERED: CefTRIAXone/D5W-Rocephin 1gm 50 ML IV ONE (20:35)
[2023-03-14] MEDS ORDERED: CEFU250T95 PO ×2 (20:47)
[2023-03-14 21:34] VITALS: BP 133/52; PULSE 71; RESP 16; TEMP 98.2; O2SAT 98
== END 2023-03-14 21:39 | disposition home or self-care (01) ==
LOC: ER 12:17
DX: N39.0 Urinary tract infection, site not specified (principal); R44.0 Auditory hallucinations; R44.1 Visual hallucinations; I50.9 Heart failure, unspecified; E03.9 Hypothyroidism, unspecified; Z79.899 Other long term (current) drug therapy; Z88.2 Allergy status to sulfonamides; Z88.8 Allergy status to other drugs, medicaments and biological substances
CPT/HCPCS: 36415; 70450; 71045; 80053; 80305; 80320; 81001; 82140; 84484; 85025; 87088; 93005; 96365; 99285; J0696; A4353

== ENCOUNTER 2023-03-17 07:26 | Emergency (ER) | payer MEDICARE, MEDICAID ==
[~2023-03-17] VITALS: Ht 142.2 cm; Wt 52.5 kg
[~2023-03-17 07:26] MED LIST changes: +CEFU250T95 PO
[2023-03-17 10:53] LABS: BILIRUBIN,URINE NEGATIVE (Neg); CLARITY,URINE CLEAR (Clear); COLOR,URINE YELLOW (Yellow); GLUCOSE, URINE NEGATIVE (Neg); KETONES,URINE NEGATIVE (Neg); LEUKOCYTE ESTERASE ,URINE NEGATIVE (Neg); NITRITES, URINE NEGATIVE (Neg); OCCULT BLOOD,URINE NEGATIVE (Neg); PH,URINE 5.5 (4.8-8.0); PROTEIN,URINE NEGATIVE (Neg); UROBILINOGEN,URINE 0.2 E.U/dL (0.2-1.0)
[2023-03-17 10:56] LABS: UA COLLECTION TYPE VOIDED
[2023-03-17 12:09] LABS: EOSINOPHILS # (AUTO) 0.1 X10'3 (0-0.9); EOSINOPHILS % (AUTO) 2.9 % (0-6); HEMATOCRIT 29.3 % (35.0-45.0); HEMOGLOBIN 9.9 g/dl (12.0-16.0); LYMPHOCYTES # (AUTO) 1.3 X10'3 (1.1-4.8); LYMPHOCYTES % (AUTO) 34.7 % (21-51); MEAN CORPUSCULAR HEMOGLOBIN 30.7 PG (27.0-31.0); MEAN CORPUSCULAR HGB CONC 33.7 g/dL (33.0-36.5); MEAN CORPUSCULAR VOLUME 90.9 FL (78-98); MEAN PLATELET VOLUME 6.5 FL (7.4-10.4); MONOCYTES # (AUTO) 0.6 X10'3 (0-0.9); MONOCYTES % (AUTO) 16.7 % (2-12); NEUTROPHILS # (AUTO) 1.6 X10'3 (1.8-7.7); NEUTROPHILS % (AUTO) 44.7 % (42-75); PLATELET COUNT 191 X10'3 (140-440); RED BLOOD COUNT 3.22 X10'6 (4.20-5.60); RED CELL DISTRIBUTION WIDTH 13.9 % (11.5-14.5); WHITE BLOOD COUNT 3.7 X10'3 (4.5-11.0)
[2023-03-17 12:18] LABS: ALANINE AMINOTRANSFERASE 18 U/L (12-78); ALBUMIN 2.9 G/DL (3.4-5.0); ALBUMIN/GLOBULIN RATIO 0.7 (1.1-1.5); ALKALINE PHOSPHATASE 66 IU/L (46-116); ANION GAP 7 (8-16); ASPARTATE AMINO TRANSFERASE 12 U/L (10-37); BILIRUBIN,TOTAL 0.2 MG/DL (0.1-1.0); BLOOD UREA NITROGEN 18 MG/DL (7-18); BUN/CREATININE RATIO 17.3 (10.0-20.0); CALCIUM 9.2 MG/DL (8.5-10.1); CHLORIDE 97 MMOL/L (99-107); CREATININE 1.04 MG/DL (0.40-0.90); GLUCOSE 79 MG/DL (70-104); POTASSIUM 4.6 MMOL/L (3.5-5.1); SODIUM 132 MMOL/L (135-145); TOTAL CARBON DIOXIDE 27.7 MMOL/L (24-32); eCRCL 24 ML/MIN; eGFR 51 ML/MIN
[2023-03-17 12:26] LABS: ETHANOL < 10 MG/DL (<10); THYROID STIMULATING HORMONE 0.61 ulU/ml (0.34-4.50)
[2023-03-17 13:49] LABS: URINE AMPHETAMINE SCREEN NEGATIVE (Neg); URINE BARBITUATE SCREEN NEGATIVE (Neg); URINE BENZODIAZEPINES SCREEN NEGATIVE (Neg); URINE CANNABINOID SCREEN NEGATIVE (Neg); URINE COCAINE SCREEN NEGATIVE (Neg); URINE METHADONE SCREEN NEGATIVE (Neg); URINE OPIATE SCREEN NEGATIVE (Neg); URINE PHENCYCLIDINE SCREEN NEGATIVE (Neg)
[2023-03-17] MEDS ORDERED: FOLI0.4T6 PO (17:13)
[2023-03-17] MEDS ORDERED: MEMA5TAB PO (17:13)
[2023-03-17] MEDS ORDERED: OMEP20CA16 PO (17:13)
[2023-03-17] MEDS ORDERED: HALO2TAB PO (17:13)
[2023-03-17] MEDS ORDERED: INUL2TAB8 PO (17:13)
[2023-03-17] MEDS ORDERED: OMEP40CA21 PO (17:13)
[2023-03-17] MEDS ORDERED: MULT-1085 PO (17:13)
[2023-03-17] MEDS ORDERED: OLAN15TA3 PO (17:13)
[2023-03-17] MEDS ORDERED: VALS160T2 PO (17:13)
[2023-03-17] MEDS ORDERED: LOP12.5T PO (17:13)
[2023-03-17] MEDS ORDERED: DOCU-148 PO (17:13)
[2023-03-17] MEDS ORDERED: docusate sod 100mg capsule PO PRN (18:05)
[2023-03-17] MEDS ORDERED: temazepam 15mg capsule PO ONE (20:00)
[2023-03-17] MEDS: calcium carbonate 500mg tablet PO SCH (20:14)
[2023-03-17] MEDS: memantine 5mg tablet PO SCH (20:15)
[2023-03-17] MEDS: haloperidol 1mg tablet PO SCH (20:17)
[2023-03-17] MEDS ORDERED: divalproex sodium 500mg tablet.DR PO SCH (21:00)
[2023-03-17] MEDS ORDERED: metoprolol tartrate 25mg tablet PO SCH (21:00)
[2023-03-17] MEDS ORDERED: OLANZAPINE 5 MG TABLET PO SCH (21:00)
[2023-03-18] MEDS ORDERED: pantoprazole 40mg Tablet.DR PO SCH (07:30)
[2023-03-18 07:47] VITALS: BP_DIAS 79; TEMP 97.9; O2SAT 96
[2023-03-18] MEDS ORDERED: INULIN PO SCH (08:00)
[2023-03-18] MEDS ORDERED: levoTHYROXINE 88mcg tablet PO SCH (08:00)
[2023-03-18] MEDS ORDERED: folic acid 0.4mg tablet PO SCH (08:00)
[2023-03-18] MEDS ORDERED: losartan 50mg tablet PO SCH (08:00)
[2023-03-18] MEDS ORDERED: multivitamins, therapeutics tablet PO SCH (08:00)
[2023-03-18] MEDS ORDERED: benztropine 1mg tablet PO SCH (08:00)
[2023-03-18] MEDS ORDERED: divalproex 250mg tablet, delayed-release PO SCH (08:00)
[2023-03-18] MEDS: calcium carbonate 500mg tablet PO SCH (10:56)
[2023-03-18] MEDS: haloperidol 1mg tablet PO SCH (10:57)
[2023-03-18] MEDS: memantine 5mg tablet PO SCH (10:58)
[2023-03-18 10:59] VITALS: BP_SYST 150; PULSE 62
[2023-03-18 11:31] VITALS: RESP 16
== END 2023-03-18 14:37 | disposition home or self-care (01) ==
LOC: ER 07:26
DX: F29 Unspecified psychosis not due to a substance or known physiological condition (principal); F31.9 Bipolar disorder, unspecified; F20.9 Schizophrenia, unspecified; Z20.822 Contact with and (suspected) exposure to COVID-19; I11.0 Hypertensive heart disease with heart failure; E03.9 Hypothyroidism, unspecified; Z88.2 Allergy status to sulfonamides; Z88.8 Allergy status to other drugs, medicaments and biological substances; Z88.5 Allergy status to narcotic agent; Z79.899 Other long term (current) drug therapy
CPT/HCPCS: 36415; 80053; 80305; 80320; 81003; 84443; 85025; 87811; 99285

== ENCOUNTER 2023-09-15 02:05 | Emergency (ER) | payer MEDICARE, MEDICAID ==
[~2023-09-15] VITALS: TEMP 98.2; Ht 142.2 cm; Wt 48.6 kg
[~2023-09-15 02:05] MED LIST changes: -ALEN70TA80 PO; -CEFU250T95 PO; +FOLI0.4T6 PO; +HALO2TAB PO; -HALO5TAB PO; +INUL2TAB5 PO; -LAMO25TA5 PO; +LOP12.5T PO; +MEMA5TAB PO; +MULT-1085 PO; +OLAN15TA3 PO; -OLAN5TAB5 PO; +OMEP20CA16 PO; -RANI150C4 PO; +VALS160T2 PO
[2023-09-15] MEDS: LORazepam 2 mg/ml vial IM ONE (08:05)
[2023-09-15 09:11] LABS: BASOPHILS # (AUTO) 0.1 X10'3 (0-0.2); BASOPHILS % (AUTO) 1.5 % (0-1); EOSINOPHILS % (AUTO) 0.2 % (0-6); HEMATOCRIT 27.3 % (35.0-45.0); HEMOGLOBIN 9.2 g/dl (12.0-16.0); LYMPHOCYTES # (AUTO) 0.8 X10'3 (1.1-4.8); LYMPHOCYTES % (AUTO) 9.7 % (21-51); MEAN CORPUSCULAR HEMOGLOBIN 29.9 PG (27.0-31.0); MEAN CORPUSCULAR HGB CONC 33.6 g/dL (33.0-36.5); MEAN PLATELET VOLUME 6.3 FL (7.4-10.4); MONOCYTES # (AUTO) 0.5 X10'3 (0-0.9); MONOCYTES % (AUTO) 6.1 % (2-12); NEUTROPHILS # (AUTO) 7.1 X10'3 (1.8-7.7); NEUTROPHILS % (AUTO) 82.5 % (42-75); PLATELET COUNT 296 X10'3 (140-440); RED BLOOD COUNT 3.07 X10'6 (4.20-5.60); RED CELL DISTRIBUTION WIDTH 15.6 % (11.5-14.5); WHITE BLOOD COUNT 8.5 X10'3 (4.5-11.0)
[2023-09-15 09:28] LABS: ALANINE AMINOTRANSFERASE 24 U/L (12-78); ALBUMIN 3.3 G/DL (3.4-5.0); ALKALINE PHOSPHATASE 91 IU/L (46-116); ANION GAP 12 (8-16); ASPARTATE AMINO TRANSFERASE 22 U/L (10-37); BILIRUBIN,TOTAL 0.7 MG/DL (0.1-1.0); BLOOD UREA NITROGEN 39 MG/DL (7-18); BUN/CREATININE RATIO 32.2 (10.0-20.0); CALCIUM 9.4 MG/DL (8.5-10.1); CHLORIDE 102 MMOL/L (99-107); CREATININE 1.21 MG/DL (0.40-0.90); GLUCOSE 125 MG/DL (70-104); POTASSIUM 4.3 MMOL/L (3.5-5.1); SODIUM 137 MMOL/L (135-145); TOTAL PROTEIN 6.6 G/DL (6.4-8.2); eCRCL 21 ML/MIN; eGFR 43 ML/MIN
[2023-09-15 09:35] LABS: ETHANOL < 10 MG/DL (<10); THYROID STIMULATING HORMONE 0.68 ulU/ml (0.34-4.50)
[2023-09-15 09:38] LABS: ACETAMINOPHEN < 2.0 UG/ML (10-30)
[2023-09-15] MEDS: ringers solution, lacted 1,000 ML IV ONE (10:22)
[2023-09-15 10:38] LABS: BILIRUBIN,URINE NEGATIVE (Neg); CLARITY,URINE CLEAR (Clear); COLOR,URINE YELLOW (Yellow); GLUCOSE, URINE NEGATIVE (Neg); KETONES,URINE NEGATIVE (Neg); LEUKOCYTE ESTERASE ,URINE NEGATIVE (Neg); NITRITES, URINE NEGATIVE (Neg); OCCULT BLOOD,URINE NEGATIVE (Neg); PH,URINE 5.5 (4.8-8.0); PROTEIN,URINE NEGATIVE (Neg); UROBILINOGEN,URINE 0.2 E.U/dL (0.2-1.0)
[2023-09-15 10:43] LABS: UA COLLECTION TYPE STRAIGHT CATH
[2023-09-15 10:57] LABS: URINE AMPHETAMINE SCREEN NEGATIVE (Neg); URINE BARBITUATE SCREEN NEGATIVE (Neg); URINE BENZODIAZEPINES SCREEN NEGATIVE (Neg); URINE CANNABINOID SCREEN NEGATIVE (Neg); URINE COCAINE SCREEN NEGATIVE (Neg); URINE METHADONE SCREEN NEGATIVE (Neg); URINE OPIATE SCREEN NEGATIVE (Neg); URINE PHENCYCLIDINE SCREEN NEGATIVE (Neg)
[2023-09-15] MEDS ORDERED: NITR50CA PO (15:39)
[2023-09-15] MEDS ORDERED: SODI1TAB2 PO (15:39)
[2023-09-15] MEDS ORDERED: RIFA550T PO (15:39)
[2023-09-15] MEDS ORDERED: HALO0.5T PO (15:39)
[2023-09-15] MEDS ORDERED: CLON0.1T2 PO (15:46)
[2023-09-15] MEDS ORDERED: CLON0.2T PO (15:47)
[2023-09-15] MEDS: cloNIDine 0.1 mg tablet PO SCH ×2 (17:00→21:24)
[2023-09-15] MEDS: losartan 50mg tablet PO SCH (20:43)
[2023-09-15] MEDS: haloperidol 5mg tablet PO SCH (20:45)
[2023-09-15] MEDS: benztropine 1mg tablet PO SCH (20:46)
[2023-09-15] MEDS: rifaximin 550mg tablet PO SCH (20:47)
[2023-09-15] MEDS: nitrofurantoin macrocrystal 50mg capsule PO SCH (20:47)
[2023-09-15] MEDS: metoprolol tartrate 12.5mg (1/2 tablet) PO SCH (21:00)
[2023-09-16] MEDS: LORazepam 2 mg/ml vial IM ONE (01:23)
[2023-09-16] MEDS: sodium chloride 1gm tablet PO SCH (09:08)
[2023-09-16] MEDS: pantoprazole 40mg Tablet.DR PO SCH (09:09)
[2023-09-16] MEDS: levoTHYROXINE 88mcg tablet PO SCH (09:09)
[2023-09-16] MEDS: folic acid 0.4mg tablet PO SCH (09:10)
[2023-09-16] MEDS: acetaminophen 325mg tablet PO PRN (09:50)
[2023-09-16 17:36] VITALS: TEMP 98.2
[2023-09-16] MEDS: OLANZapine 2.5MG tablet PO SCH (21:06)
[2023-09-17 05:51] VITALS: BP_DIAS 78; RESP 12; O2SAT 96
[2023-09-17] MEDS: LORazepam 1 MG tablet PO ONE (15:06)
[2023-09-17] MEDS: LORazepam 2 mg/ml vial IM ONE (15:51)
[2023-09-17] MEDS: docusate sod 100mg capsule PO PRN (17:09)
[2023-09-18] MEDS: OLANZapine **IM** 10 mg inj. IM ONE ×2 (03:04)
[2023-09-18] MEDS: HYDROcodone/acetaminophen 5mg/325mg tablet PO ONE (05:31)
[2023-09-18] MEDS: LORazepam 2 mg/ml vial IM ONE (09:59)
[2023-09-18] MEDS: haloperidol lactate 5mg/ml inj IM ONE (09:59)
== END 2023-09-18 11:20 | disposition home or self-care (01) ==
LOC: ER 02:05
DX: F32.A Depression, unspecified (principal); Z20.822 Contact with and (suspected) exposure to COVID-19; F25.0 Schizoaffective disorder, bipolar type; I50.9 Heart failure, unspecified; K21.9 Gastro-esophageal reflux disease without esophagitis; E03.9 Hypothyroidism, unspecified; Z98.890 Other specified postprocedural states; Z60.2 Problems related to living alone; Z88.2 Allergy status to sulfonamides; Z88.8 Allergy status to other drugs, medicaments and biological substances; Z79.899 Other long term (current) drug therapy
CPT/HCPCS: 36415; 80053; 80305; 80329; 81003; 84443; 85025; 87811; 96360; 96372; 99285; G0480; J1630; J2060; J3490; J7120; 80320